=== PATIENT | male | born 1955 | race Caucasian/White ===

== ENCOUNTER 2024-08-06 22:09 | Observation (INO) ==
--- NOTE | 2024-08-06 22:25 | Emergency Department Note ---
Impression & Plan Head injury, Contusion of forehead, Cervical strain, acute, Abnormal CT of the head ED Provider Note NAME: ESPINOZA HARRIS III AGE: 68 SEX: M : 1955 ARRIVES VIA: Ambulance INFORMANT: Patient, EMS ED PROVIDER(S): Luis Gomez DO CHIEF COMPLAINT: Head injury HPI: The patient is a 68-year-old male who presented to the emergency department for an evaluation of head injury. 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 The patient was tackled accidentally when players came across the field of play. The patient fell to the ground. The patient had a loss of consciousness with that was witnessed. The patient has had a headache. He is had no vomiting. He denies any other injury. He complains of some neck stiffness but no overt pain. He also complains of stiffness in his right knee. The patient denies having any blood thinners. He was made a injury alert prior to arrival. ROS: See above HPI for pertinent positives & negatives. A total of 10 systems reviewed and were otherwise negative. PAST MEDICAL HISTORY: See Below PAST SURGICAL HISTORY: See Below FAMILY HISTORY: See Below SOCIAL HISTORY: See Below HOME MEDICATIONS: See Below ALLERGIES: See Below VITALS: See Below PHYSICAL EXAMINATION: Primary Survey Airway: Intact Breathing: Normal, breath sounds equal bilaterally Circulation: Skin warm, distal pulses 2+, capillary refill less than 2 seconds Disability Pupils: Equal and reactive to light, 4mm, brisk GCS: 15, Motor Function: Moves all extremities. Sensory: No deficits Secondary Survey GEN: Well developed and well-nourished HEAD: There is a hematoma on the right parietal scalp. No active bleeding was noted. EYES: Pupils round reactive to light, conjunctiva clear, extraocular movements intact, no raccoons eyes ENT: No fluid in external acoustic canals, no hemotympanum, no llanes's sign, nares patent, oropharynx clear NECK: Rigid cervical collar was placed prior to arrival. The patient does have normal range of motion with no tenderness. Cervical spine is clinically cleared on initial evaluation. HEART: Regular rate and rhythm LUNGS: Clear to auscultation bilaterally. CHEST: Chest wall non-tender, no bruising/deformity ABD: There is no tenderness guarding or rigidity noted. BACK: No step offs or deformities, T-L spine non tender EXT: There is no decreased range of motion noted in either upper extremity. There is no decreased range of motion or tenderness with range of motion testing of the hips bilaterally. There was tenderness to palpation over the right knee. No gross deformity was noted. NEURO: The patient is awake alert and oriented x 3. Strength was symmetric. MEDICAL DECISION MAKING: The patient is a 68-year-old male who presented to the emergency department for an evaluation of head injury. 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 The patient arrived via ambulance. The patient's cervical spine was clinically cleared in the emergency department. Cervical spine was also radiographically cleared. I discussed the patient's laboratory and radiographic studies with him. Given his findings on CAT scan of the brain I also discussed his condition with the neurosurgeon at [facility]. They do not feel the patient requires transfer at this time but would endorse a delayed CAT scan of the brain unless the patient's clinical condition worsens. For this reason I [facility] to evaluate the patient in the emergency department for further management and disposition. Triage Nursing notes reviewed. Prior medical records reviewed Vital Signs: reviewed and remarkable for elevated blood pressure. Differential diagnosis: Fracture, dislocation, contusion, intra-abdominal, pneumothorax, intrathoracic, intracranial, neurologic, compartment syndrome, rhabdomyolysis, as well as other pathologies. ER treatment provided: See below Diagnostics interpreted by me: ECG: EKG was obtained in the emergency department. My interpretation is sinus bradycardia 59 bpm. There is no ectopy. Right bundle branch block pattern was favored. LVH was suggested by voltage criteria. This was compared to a tracing from May 11, 2021. No changes were noted. Cardiac Monitoring: An order was placed for continuous cardiac monitoring. The monitor shows a rate of 64 bpm with sinus rhythm. Laboratory studies: As stated above and show below. Imaging studies: See below. Radiographic imaging was reviewed by myself Consultation(s): I discussed this case with Dr. Knapp who is on-call for neurosurgery at [facility]. He does not feel the patient requires transfer at this time and would agree with a delayed CAT scan to determine if this is worsening. I discussed this case with Dr. Krueger who is on-call for the [facility]. ED COURSE: Cervical spine was clinically cleared in the emergency department after radiographic clearance. Past Med/Surg History Problem List (Updated 08/07/24 @ 01:43 by Luis Gomez DO) Abnormal CT of the head (Acute) Cervical strain, acute (Acute) Contusion of forehead (Acute) Head injury (Acute) Hypertension Fracture of phalanx of finger of right hand Mixed conductive and sensorineural hearing loss of right ear with restricted hearing of left ear Erectile dysfunction Conductive hearing loss of right ear with restricted hearing of left ear Otalgia of both ears Intermittent Tinnitus, bilateral Gilbert's syndrome Arthritis of knee, left Sensorineural hearing loss (SNHL) of left ear with restricted hearing of right ear Seasonal allergies Medial meniscus tear Medical History Cataract rt Osteoarthritis Degenerative disc disease Chronic back pain Surgical History S/P cataract extraction R, 01/2022 Hx of surgical procedure vasectomy reversal History of umbilical hernia repair History of colonoscopy H/O hand surgery ORIF left index finger ( S/P vasectomy x2 S/P knee surgery right knee x2 right knee x1 Family History Father Colorectal cancer Other Allergies No family history of adverse response to anesthesia No family history of bleeding disorder Denies family history of Ovarian cancer Prostate cancer Myocardial infarction Breast cancer Social History Smoking Status: Never smoker Second Hand Exposure: No; Do You Dip or Chew Tobacco: No; Hx Alcohol Use: No Hx Substance Use: No Preferred Language: Khmer Communication Ability: Effective Visual Impairment: No Limitations Hearing Ability: Normal Cap Parts Cutter Required: No Beliefs That Will Affect Care: None marital status: Current Living Situation: Spouse current occupational status: employed and retired 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[employer] How many Children do You have: 6 Feels Safe at Home: Yes Childhood Exposure to Second-Hand Smoke: Yes Diet: regular caffeine: Yes Dental Care, Regularly: Yes Physical Activity Frequency: Does not Exercise Seatbelt Use: always Sunscreen Use: Yes Assistive Devices: Glasses Allergies Allergies Allergy/AdvReac Type Severity Reaction Status Date / Time No Known Drug Allergies Allergy Verified 04/22/24 17:07 Home Meds Home Medications Medication Instructions Recorded Confirmed fexofenadine 180 mg tablet 180 mg PO QAM PRN seasonal 05/14/21 04/22/24 (Izzy Allergy) allergies naproxen sodium 220 mg tablet 220 mg PO Q8H PRN Pain 01/30/22 04/22/24 (Aleve) multivitamin (Daily Multi-Vitamin 1 tab PO DAILY 12/26/23 04/22/24 tablet) Previous Rx's Medication Instructions Recorded sildenafil 100 mg tablet 100 mg PO DAILY PRN sexual 11/27/21 activity #20 tabs doxycycline hyclate 100 mg capsule 100 mg PO BID #14 caps 03/30/24 promethazine-DM 6.25 mg-15 mg/5 mL 5 ml PO Q6H PRN cough #118 mL 03/30/24 oral syrup Results & Data (ED) Vital Signs Vital Signs - 24 hr 08/06/24 22:02 08/06/24 22:02 08/06/24 22:02 Temperature 36.8 C Temperature Source Oral Pulse Rate Pulse Rate [Right Brachial] 65 65 Pulse Rhythm [Right Brachial] Regular Regular Pulse Strength [Carotid] Pulse Strength [Right Brachial] Normal Normal Respiratory Rate 19 19 Respiratory Effort / Characteristics Non-Labored Non-Labored Respiratory Depth Normal Normal Respiratory Pattern Regular Regular Blood Pressure Blood Pressure [Right Arm] 144/91 H 144/91 H Blood Pressure Mean Blood Pressure Mean [Right Arm] 108 108 Blood Pressure Position [Right Arm] Lying Lying Pulse Oximetry 96 97 97 Oxygen Delivery Method Room Air Room Air Room Air Oxygen Flow Rate Sepsis Recent Fever Within 48 Hours Sepsis New/Unexplained Change in Mental Status Sepsis Action Taken by Nursing 08/06/24 22:13 08/06/24 22:15 08/06/24 22:16 Temperature 36.8 C Temperature Source Oral Pulse Rate 68 68 Pulse Rate [Right Brachial] 64 Pulse Rhythm [Right Brachial] Regular Pulse Strength [Carotid] Pulse Strength [Right Brachial] Normal Respiratory Rate 18 19 Respiratory Effort / Characteristics Non-Labored Spontaneous Non-Labored Respiratory Depth Normal Normal Respiratory Pattern Regular Regular Blood Pressure 163/98 H Blood Pressure [Right Arm] 144/91 H Blood Pressure Mean 119 Blood Pressure Mean [Right Arm] 108 Blood Pressure Position [Right Arm] Lying Pulse Oximetry 96 96 Oxygen Delivery Method Room Air Room Air Oxygen Flow Rate Sepsis Recent Fever Within 48 Hours No Sepsis New/Unexplained Change in Mental Status N/A Sepsis Action Taken by Nursing No Action Required 08/06/24 23:15 08/07/24 00:00 08/07/24 00:46 Temperature 36.9 C Temperature Source Pulse Rate 61 Pulse Rate [Right Brachial] 62 62 Pulse Rhythm [Right Brachial] Regular Regular Pulse Strength [Carotid] Normal Pulse Strength [Right Brachial] Normal Normal Respiratory Rate 16 18 18 Respiratory Effort / Characteristics Non-Labored Non-Labored Spontaneous Respiratory Depth Normal Normal Respiratory Pattern Regular Regular Blood Pressure 168/90 H Blood Pressure [Right Arm] 165/90 H 175/88 H Blood Pressure Mean Blood Pressure Mean [Right Arm] 115 117 Blood Pressure Position [Right Arm] Lying Semi-fowlers Pulse Oximetry 96 97 99 Oxygen Delivery Method Room Air Room Air Room Air Oxygen Flow Rate 0 Sepsis Recent Fever Within 48 Hours Sepsis New/Unexplained Change in Mental Status Sepsis Action Taken by Nursing 08/07/24 00:46 08/07/24 01:00 Temperature Temperature Source Pulse Rate Pulse Rate [Right Brachial] 64 Pulse Rhythm [Right Brachial] Regular Pulse Strength [Carotid] Pulse Strength [Right Brachial] Normal Respiratory Rate 18 Respiratory Effort / Characteristics Non-Labored Spontaneous Respiratory Depth Normal Respiratory Pattern Regular Blood Pressure Blood Pressure [Right Arm] 159/92 H Blood Pressure Mean Blood Pressure Mean [Right Arm] 114 Blood Pressure Position [Right Arm] Semi-fowlers Pulse Oximetry 99 95 Oxygen Delivery Method Room Air Room Air Oxygen Flow Rate Sepsis Recent Fever Within 48 Hours Sepsis New/Unexplained Change in Mental Status Sepsis Action Taken by Alf Medications Current Medication List: was personally reviewed by me Laboratory Data Attestation: I reviewed the patient's lab results. 08/06/24 22:39 08/06/24 22:39 Lab Results 08/06/24 08/06/24 08/07/24 Range/Units 22:39 22:43 00:42 WBC 6.10 (4.8-10.8) K/ul RBC 4.76 (4.70-6.10) M/uL Hgb 14.7 (14.0-18.0) g/dl POC Hgb 13.6 L (14.0-18.0) g/dl Hct 40.2 L (42.0-52.0) % POC Hct 40 L (42-52) % MCV 84.5 (80.0-100.0) fL MCH 30.9 (25.0-34.0) pg MCHC 36.6 H (32.0-36.0) g/dL RDW Std Deviation 35.8 L (36.4-46.3) fL RDW Coeff of Skip 11.9 (11.5-14.5) % Plt Count 148 (130-400) K/uL MPV 11.0 (9.4-12.4) fL Immature Gran % (Auto) 0.7 % Neut % (Auto) 59.1 % Lymph % (Auto) 31.5 % [place] % (Auto) 8.0 % Eos % (Auto) 0.5 % Baso % (Auto) 0.2 % Neut # (Auto) 3.61 (1.40-6.50) K/uL Lymph # (Auto) 1.92 (1.20-3.40) K/uL [place] # (Auto) 0.49 (0.11-0.59) K/uL Eos # (Auto) 0.03 (0.00-0.50) K/uL Baso # (Auto) 0.01 (0.00-0.20) K/uL Immature Gran # (Auto) 0.04 (0.01-0.20) K/uL PT 10.9 (9.0-12.0) Seconds INR 1.0 (0.9-1.1) APTT 25 (21-31) Seconds PTT Ratio 0.9 POC Sodium 141 (135-144) mmol/L Sodium 138 (136-145) mmol/L POC Potassium 3.7 (3.3-5.0) mmol/L Potassium 3.7 (3.5-5.1) mmol/L POC Chloride 104 (101-112) mmol/L Chloride 104 (98-107) mmol/L Carbon Dioxide 25 (21-32) mmol/L POC Total CO2 22 L (24-31) mmol/L Anion Gap 9 (3-11) POC Anion Gap 19.0 (16-25) mmol/L POC BUN 29 H (7-18) mg/dl BUN 32 H (6-23) mg/dl Creatinine 1.02 (0.6-1.4) mg/dl POC Creatinine 1.1 (0.6-1.3) mg/dl Est Cr Clr Drug Dosing 89.9 ml/min eGFR 80.06 BUN/Creatinine Ratio 31.4 H (10-20) Glucose 98 (70-99(Fasting)) mg/dl POC Glucose (other) 93 (70-99) mg/dl Calcium 9.3 (8.6-10.3) mg/dl POC Ioniz Calcium Marilia 1.22 (1.12-1.32) mmol/l Total Bilirubin 1.5 H (0.2-1.0) mg/dl AST 26 (13-39) U/L ALT 24 (7-52) U/L Alkaline Phosphatase 69 (34-104) U/L Total Protein 6.6 (6.0-8.3) gm/dl Albumin 4.5 (3.4-5.0) gm/dl Globulin 2.1 L (2.5-4.0) gm/dl Albumin/Globulin Ratio 2.1 H (0.9-2) Lipase 44 (11-82) U/L Urine Color Yellow Urine Appearance Clear (Clear) Urine pH 5.0 (4.5-7.5) Ur Specific [place] 1.023 (1.000-1.030) Urine Protein Negative (Negative) Urine Glucose (UA) Negative (Negative) Urine Ketones 1+ H (Negative) Urine Blood Negative (Negative) Urine Nitrite Negative (Negative) Urine Bilirubin Negative (Negative) Urine Urobilinogen Negative (Negative) Ur Leukocyte Esterase Negative (Negative) Urine Comment Administered Medications Discontinued Medications Acetaminophen (Ofirmev) 1,000 mg in 100 mls @ 400 mls/hr IV NOW STA Stop: 08/06/24 22:34 Last Infusion: 08/06/24 23:12 Dose: Infused Documented By: Admin: 08/06/24 22:54 Dose: 400 mls/hr Documented By: EFREN Ondansetron HCl (Ondansetron Inj 2 Mg/Ml 2 Ml Vial) 4 mg IV NOW STA Stop: 08/06/24 22:21 Last Admin: 08/06/24 22:54 Dose: 4 mg Documented By: EFREN Imaging Data Attestation: I personally reviewed and interpreted this imaging study as follows: My Impression: X-ray of the right knee was obtained in the emergency department. My interpretation is degenerative changes noted but no definite fracture, final report pending. X-ray of the pelvis was obtained in the emergency department. My interpretation is no definite fracture, final report pending. 1 view chest x-ray was obtained in the emergency department. My interpretation is no free air or definite infiltrate, final report pending. Radiologist's Impression: Cervical Spine CT 08/06/24 22:20 Exam(s): CT C SPINE EXAM: CT Cervical Spine Without Intravenous Contrast CLINICAL HISTORY: Reason for exam: Trauma. TECHNIQUE: Axial computed tomography images of the cervical spine without intravenous contrast. CTDI is 35.79 mGy and DLP is 624.41 mGy-cm. Automated exposure control was utilized for the study. A dose lowering technique was utilized adhering to the principles of ALARA. COMPARISON: No relevant prior studies available. FINDINGS: Vertebrae: Unremarkable. No acute fracture or subluxation. Discs/spinal canal/neural foramina: Disc and uncovertebral joint degeneration at C5-C6 and C6-C7. Multilevel bilateral facet joint degeneration, right worse than left. Mild central canal narrowing at C5- C6. Foraminal narrowing on the right at C2-C3, on the right at C3-C4, on the right at C4-C5, bilaterally at C5-C6, and on the left at C6-C7. Soft tissues: Unremarkable. IMPRESSION: No acute findings in the cervical spine. Electronically signed by: Naina Guardado M.D. 08/07/24 00:27 AM Chest X-Ray 08/06/24 22:20 Exam(s): XR CXR 1 VIEW EXAM: XR Chest, 1 View CLINICAL HISTORY: Reason for exam: Trauma. TECHNIQUE: Frontal view of the chest. COMPARISON: 08/04/2012 FINDINGS: Lungs: No consolidation. Pleural space: No significant pleural effusion. No pneumothorax. Heart: No cardiomegaly or pulmonary vascular congestion. Bones/joints: No acute fracture. No dislocation. IMPRESSION: No evidence of acute cardiopulmonary disease. Electronically signed by: Naina Guardado M.D. 08/07/24 00:[address] 08/06/24 22:20 CR Exam(s): CT HEAD Without Contrast EXAM: CT Head Without Intravenous Contrast CLINICAL HISTORY: Reason for exam: Trauma. TECHNIQUE: Axial computed tomography images of the head/brain without intravenous contrast. CTDI is 26.24 mGy and DLP is 528.47 mGy-cm. Automated exposure control was utilized for the study. A dose lowering technique was utilized adhering to the principles of ALARA. COMPARISON: No relevant prior studies available. FINDINGS: Brain: Trace hyperdensity along the interhemispheric fissure (series 2, image 18). Cortical cerebral volume loss. Guerrero-white matter differentiation maintained. No mass effect or midline shift. No parenchymal edema. Ventricles: No hydrocephalus. Bones/joints: No acute fracture. Soft tissues: Mild right frontal scalp swelling. Sinuses: Unremarkable as visualized. Mastoid air cells: No significant mastoid effusion. IMPRESSION: 1. Trace hyperdensity along the interhemispheric fissure (series 2, image 18). Mineralization and trace subarachnoid hemorrhage are differential considerations. 2. Mild right frontal scalp swelling. Communications: Call Doctor Intracranial Hemorrhage Electronically signed by: Naina Guardado M.D. 08/07/24 00:26 AM Knee X-Ray 08/06/24 22:20 Exam(s): XR RIGHT KNEE, 1-2 views EXAM: XR Right Knee, 1 or 2 Views CLINICAL HISTORY: Reason for exam: trauma. TECHNIQUE: Frontal and/or lateral views of the right knee. COMPARISON: No relevant prior studies available. FINDINGS: Bones/joints: Mild tricompartment osteoarthritis. No joint effusion. No acute fracture or dislocation. Soft tissues: Unremarkable. IMPRESSION: No acute findings in the right knee. Electronically signed by: Naina Guardado M.D. 08/07/24 00:33 AM Pelvis X-Ray 08/06/24 22:20 Exam(s): XR PELVIS, 1-2 views EXAM: XR Pelvis, 1 or 2 Views CLINICAL HISTORY: Reason for exam: Trauma. TECHNIQUE: Frontal view of the pelvis. COMPARISON: No relevant prior studies available. FINDINGS: Bones/joints: No acute fracture. No dislocation. Soft tissues: Unremarkable. IMPRESSION: No acute osseous findings. Electronically signed by: Naina Guardado M.D. 08/07/24 01:23 AM Discharge Plan Visit Data Chief Complaint: Trauma Stated Complaint: Knocked Out ED Provider: Luis Gomez Discharge Problem: Head injury, Contusion of forehead, Cervical strain, acute, Abnormal CT of the head Patient Disposition: Being Evaluated by Hospitalist Condition: Fair Forms Stand Alone Forms: [facility] [employer] Prescriptions Prescriptions: No Action sildenafil 100 mg tablet 100 mg PO DAILY PRN (Reason: sexual activity) Qty: 20 5RF Rx Instructions: administer 30 minutes to 4 hours before activity promethazine-DM 6.25-15 mg/5 mL syrup 5 ml PO Q6H PRN (Reason: cough) Qty: 118 0RF multivitamin [Daily Multi-Vitamin] Tablet 1 tab PO DAILY doxycycline hyclate 100 mg capsule 100 mg PO BID Qty: 14 0RF fexofenadine [Izzy Allergy] 180 mg Tablet 180 mg PO QAM PRN (Reason: seasonal allergies) naproxen sodium [Aleve] 220 mg Tablet 220 mg PO Q8H PRN (Reason: Pain) Patient Comments: takes twice daily Referrals Referrals: Erick Ayala DO [Primary Care Provider] -
[2024-08-06] MEDS: ACETAMINOPHEN 1,000 MG/100 ML VIAL IV STA (22:54)
[2024-08-06] MEDS: ONDANSETRON INJ 2 MG/ML 2 ML VIAL IV STA (22:54)
[2024-08-06 23:00] LABS: iSTAT Creatinine 1.1 mg/dl (0.6-1.3); iSTAT Hemoglobin 13.6 g/dl (14.0-18.0); iSTAT Ionized Calcium 1.22 mmol/l (1.12-1.32); iSTAT Potassium 3.7 mmol/L (3.3-5.0)
[2024-08-06 23:00] LABS: Basophils # (auto) 0.01 K/uL (0.00-0.20); Basophils % (auto) 0.2 %; Eosinophils # (auto) 0.03 K/uL (0.00-0.50); Eosinophils % (auto) 0.5 %; Hematocrit (blood only) 40.2 % (42.0-52.0); Hemoglobin 14.7 g/dl (14.0-18.0); Immature Granulocytes # (auto) 0.04 K/uL (0.01-0.20); Immature Granulocytes % (auto) 0.7 %; Lymphocytes # (auto) 1.92 K/uL (1.20-3.40); Lymphocytes % (auto) 31.5 %; Mean Corpuscular Hemoglobin 30.9 pg (25.0-34.0); Mean Corpuscular Hgb Conc 36.6 g/dL (32.0-36.0); Mean Corpuscular Volume 84.5 fL (80.0-100.0); Monocytes # (auto) 0.49 K/uL (0.11-0.59); Neutrophils # (auto) 3.61 K/uL (1.40-6.50); Neutrophils % (auto) 59.1 %; Platelet Count 148 K/uL (130-400); RDW Coefficient of Variation 11.9 % (11.5-14.5); RDW Standard Deviation 35.8 fL (36.4-46.3); Red Blood Count 4.76 M/uL (4.70-6.10)
[2024-08-06 23:14] LABS: Albumin Level 4.5 gm/dl (3.4-5.0); Bilirubin,Total 1.5 mg/dl (0.2-1.0); Calcium 9.3 mg/dl (8.6-10.3); Potassium 3.7 mmol/L (3.5-5.1)
[2024-08-06 23:20] LABS: Albumin Globulin Ratio 2.1 (0.9-2); BUN Creatinine Ratio 31.4 (10-20); Creatinine Clr Calc Pharmacy 89.9 ml/min; Globulin 2.1 gm/dl (2.5-4.0); Total Protein 6.6 gm/dl (6.0-8.3)
[2024-08-06 23:38] LABS: Partial Thromboplastin Ratio 0.9; Partial Thromboplastin Time 25 Seconds (21-31); Prothrombin Time 10.9 Seconds (9.0-12.0)
--- NOTE | 2024-08-07 00:27 | CT Scan Report ---
Exam(s): CT HEAD Without Contrast EXAM: CT Head Without Intravenous Contrast CLINICAL HISTORY: Reason for exam: Trauma. TECHNIQUE: Axial computed tomography images of the head/brain without intravenous contrast. CTDI is 26.24 mGy and DLP is 528.47 mGy-cm. Automated exposure control was utilized for the study. A dose lowering technique was utilized adhering to the principles of ALARA. COMPARISON: No relevant prior studies available. FINDINGS: Brain: Trace hyperdensity along the interhemispheric fissure (series 2, image 18). Cortical cerebral volume loss. Guerrero-white matter differentiation maintained. No mass effect or midline shift. No parenchymal edema. Ventricles: No hydrocephalus. Bones/joints: No acute fracture. Soft tissues: Mild right frontal scalp swelling. Sinuses: Unremarkable as visualized. Mastoid air cells: No significant mastoid effusion. IMPRESSION: 1. Trace hyperdensity along the interhemispheric fissure (series 2, image 18). Mineralization and trace subarachnoid hemorrhage are differential considerations. 2. Mild right frontal scalp swelling. Communications: Call Doctor Intracranial Hemorrhage Electronically signed by: Naina Guardado M.D. 08/07/24 00:26 AM
--- NOTE | 2024-08-07 00:28 | CT Scan Report ---
Exam(s): CT C SPINE EXAM: CT Cervical Spine Without Intravenous Contrast CLINICAL HISTORY: Reason for exam: Trauma. TECHNIQUE: Axial computed tomography images of the cervical spine without intravenous contrast. CTDI is 35.79 mGy and DLP is 624.41 mGy-cm. Automated exposure control was utilized for the study. A dose lowering technique was utilized adhering to the principles of ALARA. COMPARISON: No relevant prior studies available. FINDINGS: Vertebrae: Unremarkable. No acute fracture or subluxation. Discs/spinal canal/neural foramina: Disc and uncovertebral joint degeneration at C5-C6 and C6-C7. Multilevel bilateral facet joint degeneration, right worse than left. Mild central canal narrowing at C5- C6. Foraminal narrowing on the right at C2-C3, on the right at C3-C4, on the right at C4-C5, bilaterally at C5-C6, and on the left at C6-C7. Soft tissues: Unremarkable. IMPRESSION: No acute findings in the cervical spine. Electronically signed by: Naina Guardado M.D. 08/07/24 00:27 AM
--- NOTE | 2024-08-07 00:34 | XRay Report ---
Exam(s): XR RIGHT KNEE, 1-2 views EXAM: XR Right Knee, 1 or 2 Views CLINICAL HISTORY: Reason for exam: trauma. TECHNIQUE: Frontal and/or lateral views of the right knee. COMPARISON: No relevant prior studies available. FINDINGS: Bones/joints: Mild tricompartment osteoarthritis. No joint effusion. No acute fracture or dislocation. Soft tissues: Unremarkable. IMPRESSION: No acute findings in the right knee. Electronically signed by: Naina Guardado M.D. 08/07/24 00:33 AM
[2024-08-07 00:51] LABS: Appearance Urine Clear (Clear); Bilirubin Urine Negative (Negative); Blood Urine Negative (Negative); Color Urine Yellow; Glucose Urine UA Negative (Negative); Ketones Urine 1+ (Negative); Leukocyte Esterase Urine Negative (Negative); Nitrite Urine Negative (Negative); Protein Urine Negative (Negative); Specific Gravity Urine 1.023 (1.000-1.030); Urobilinogen Urine Negative (Negative)
--- NOTE | 2024-08-07 00:52 | XRay Report ---
Exam(s): XR CXR 1 VIEW EXAM: XR Chest, 1 View CLINICAL HISTORY: Reason for exam: Trauma. TECHNIQUE: Frontal view of the chest. COMPARISON: 08/04/2012 FINDINGS: Lungs: No consolidation. Pleural space: No significant pleural effusion. No pneumothorax. Heart: No cardiomegaly or pulmonary vascular congestion. Bones/joints: No acute fracture. No dislocation. IMPRESSION: No evidence of acute cardiopulmonary disease. Electronically signed by: Naina Guardado M.D. 08/07/24 00:51 AM
--- NOTE | 2024-08-07 01:24 | XRay Report ---
Exam(s): XR PELVIS, 1-2 views EXAM: XR Pelvis, 1 or 2 Views CLINICAL HISTORY: Reason for exam: Trauma. TECHNIQUE: Frontal view of the pelvis. COMPARISON: No relevant prior studies available. FINDINGS: Bones/joints: No acute fracture. No dislocation. Soft tissues: Unremarkable. IMPRESSION: No acute osseous findings. Electronically signed by: Naina Guardado M.D. 08/07/24 01:23 AM
--- NOTE | 2024-08-07 02:10 | History & Physical Report ---
Date of Service August 07, 2024 Assessment & Plan (1) Subarachnoid hemorrhage: (2) Head injury: (3) Contusion of forehead: (4) Concussion: (5) Cervical strain, acute: (6) Gilbert's syndrome: Plan Very pleasant 68yo male with no significant or pertinent past medical history presented to [facility] after suffering a head injury at a local football all-star game in [place]. 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 Apparently 2 or more players tackled each other near the sideline, went out of bounds, and collided with Mr Jean Baptiste. He does not recall where he initially got hit but he was thrown to the ground. He lost consciousness for at least 1 minute per bystanders, and upon awakening he was confused until he got in the ambulance to come to [facility]. Initial CT head at [facility] appears to show a very tiny subarachnoid hemorrhage. #small arachnoid hemorrhage - -2nd to head injury as above -neuro exam is wnl -will perform neuro checks/GCS checks q4h -repeat CT head noncontrast at 0800 today -would plan to reach back out to neurosurgery at [facility] after the repeat head CT has resulted -if stable -- then another head CT in 2 weeks as outpatient? #head injury with concussion - -brain rest/avoid strenuous physical & mental activities -IV fluids -allow diet as tolerated -briefly discussed concussion with patient & his /daughter -see above re: SAH #contusion of forehead - -ice prn -tylenol prn -avoid NSAIDs for now due to SAH #elevated total bilirubin - -chronic -likely 2nd to h/o Gilbert's syndrome -no Rx #cervical strain - -c-spine CT negative for fracture -tylenol prn -ice prn then heat ultimately in a couple of days place on observation status /daughter updated at bedside History of Present Illness Chief Complaint: head injury Primary Care Provider: Erick Ayala, Very pleasant 68yo male with no significant or pertinent past medical history presented to [facility] after suffering a head injury at a local football all-star game in [place]. 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 Apparently 2 or more players tackled each other near the sideline, went out of bounds, and collided with Mr Jean Baptiste. He does not recall where he initially got hit but he was thrown to the ground. He lost consciousness for at least 1 minute per bystanders, and upon awakening he was confused until he got in the ambulance to come to [facility]. His first recollection of the event was being in the ambulance. During my assessment he c/o mild headache, soreness in his neck, and being sore in other locations. However, he denies pain in his arms, legs, pelvis, and low back. He was able to accurately tell me what he had eaten earlier in the day, and was oriented to person/place/time/month/year. CT head done in the ER appears to show a tiny SAH inter-hemispheric. Dr Gomez, ER physician, contacted Dr. Knapp who was on-call for neurosurgery at [facility]. Dr Knapp felt that Mr Jean Baptiste could be safely admitted to [facility] with plans for repeat head CT later this morning to ensure stability. Allergies Allergy/AdvReac Type Severity Reaction Status Date / Time No Known Drug Allergies Allergy Verified 04/22/24 17:07 Home Medications Medication Instructions Recorded Confirmed Type fexofenadine 180 mg tablet 180 mg PO QAM PRN seasonal 05/14/21 04/22/24 History (Izzy Allergy) allergies sildenafil 100 mg tablet 100 mg PO DAILY PRN sexual 11/27/21 04/22/24 Rx activity #20 tabs naproxen sodium 220 mg tablet 220 mg PO Q8H PRN Pain 01/30/22 04/22/24 History (Aleve) multivitamin (Daily Multi-Vitamin 1 tab PO DAILY 12/26/23 04/22/24 History tablet) doxycycline hyclate 100 mg capsule 100 mg PO BID #14 caps 03/30/24 04/22/24 Rx promethazine-DM 6.25 mg-15 mg/5 mL 5 ml PO Q6H PRN cough #118 mL 03/30/24 04/22/24 Rx oral syrup Past Med/Surg History Problem List (Updated 08/07/24 @ 05:27 by Derrick Krueger MD) Concussion Subarachnoid hemorrhage Abnormal CT of the head (Acute) Cervical strain, acute (Acute) Contusion of forehead (Acute) Head injury (Acute) Hypertension Fracture of phalanx of finger of right hand Mixed conductive and sensorineural hearing loss of right ear with restricted hearing of left ear Erectile dysfunction Conductive hearing loss of right ear with restricted hearing of left ear Otalgia of both ears Intermittent Tinnitus, bilateral Gilbert's syndrome Arthritis of knee, left Sensorineural hearing loss (SNHL) of left ear with restricted hearing of right ear Seasonal allergies Medial meniscus tear Medical History Cataract rt Osteoarthritis Degenerative disc disease Chronic back pain Surgical History S/P cataract extraction R, 01/2022 Hx of surgical procedure vasectomy reversal History of umbilical hernia repair History of colonoscopy H/O hand surgery ORIF left index finger ( S/P vasectomy x2 S/P knee surgery right knee x2 right knee x1 Family History (Updated 08/07/24 @ 05:20 by Derrick Krueger MD) Father , age 72 Colorectal cancer Other Allergies No family history of adverse response to anesthesia No family history of bleeding disorder Denies family history of Ovarian cancer Prostate cancer Myocardial infarction Breast cancer Social History (Updated 08/07/24 @ 05:21 by Derrick Krueger MD) Smoking Status: Never smoker Second Hand Exposure: No; Do You Dip or Chew Tobacco: No; Tobacco Cessation Education Requested by Patient: No Hx Alcohol Use: No Hx Substance Use: No Preferred Language: Romanian Communication Ability: Effective Visual Impairment: No Limitations Hearing Ability: Normal Bull Riveter Required: No Beliefs That Will Affect Care: None marital status: Current Living Situation: Spouse current occupational status: employed 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[employer] How many Children do You have: 6 Other Information That Helps Us Care for You: No Feels Safe at Home: Yes Safety Concerns: Feels Safe At This Time Childhood Exposure to Second-Hand Smoke: Yes Diet: regular caffeine: Yes Dental Care, Regularly: Yes Physical Activity Frequency: Does not Exercise Seatbelt Use: always Sunscreen Use: Yes Assistive Devices: Glasses Review of Systems Review of Systems: gen - no recent fevers; good appetite eyes - no blurry vision or visual loss following his head injury HENT - no ear pain, sore throat, mouth pain neck - soreness present since the injury; he also has chronic neck pain at baseline CV - no chest pain pulm - no dyspnea, no cough GI - no abd pain or N/V since the accident - no dysuria musculo - soreness in various locations but not painful neuro - no numbness/tingling of arms/legs; mild headache; was able to walk to bathroom in the ER without difficulty; no ataxia or dizziness skin - abrasion/mild hematoma right forehead endo - no diabetes Physical Exam Physical Exam: gen - lying comfortably in bed, NAD, awake/alert eyes - PERRL, EOMI, mild horizontal nystagmus with lateral gaze face - mild abrasion/hematoma/swelling right forehead, no other signs of trauma HENT - no nasal fracture, no lip or oral cavity trauma; MMM; no lesions; teeth wnl neck - supple, no JVD heart - RRR, s1 s2, no murmur lungs - CTA b/l abd - soft NT ND BS+; no signs of trauma/bruising/etc.; no HSM; no flank tender ness b/l ext - scant swelling right knee, but not tender to palpation; pulses b/l feet 2+ musculo - full passive ROM of both arms, hips, knees, ankles - no pain with such; left 2nd finger with chronic deformity neuro - CN 3-12 intact; DTRs 2+ b/l upper & lower exts; strength 5/5 x 4 exts; finger/nose/finger maneuver wnl b/l hands psych - a/o x 3 Results & Data Results & Data Vital Signs (Past 12 Hours) Vital Signs Temp Pulse Pulse Resp BP BP Pulse Ox 08/07/24 01:00 64 18 159/92 H 95 08/07/24 00:46 99 08/07/24 00:46 36.9 C 61 18 168/90 H 99 08/07/24 00:00 62 18 175/88 H 97 08/06/24 23:15 62 16 165/90 H 96 08/06/24 22:16 68 08/06/24 22:15 64 19 144/91 H 96 08/06/24 22:13 36.8 C 68 18 163/98 H 96 08/06/24 22:02 97 08/06/24 22:02 36.8 C 65 19 144/91 H 97 08/06/24 22:02 65 19 144/91 H 96 O2 Del Method O2 Flow Rate 08/07/24 01:00 Room Air 08/07/24 00:46 Room Air 08/07/24 00:46 Room Air 0 08/07/24 00:00 Room Air 08/06/24 23:15 Room Air 08/06/24 22:16 08/06/24 22:15 Room Air 08/06/24 22:13 Room Air 08/06/24 22:02 Room Air 08/06/24 22:02 Room Air 08/06/24 22:02 Room Air Laboratory Results Laboratory Results - last 24 hr 08/06/24 08/06/24 08/07/24 22:39 22:43 00:42 WBC 6.10 RBC 4.76 Hgb 14.7 POC Hgb 13.6 L Hct 40.2 L POC Hct 40 L MCV 84.5 MCH 30.9 MCHC 36.6 H RDW Std Deviation 35.8 L RDW Coeff of Skip 11.9 Plt Count 148 MPV 11.0 Immature Gran % (Auto) 0.7 Neut % (Auto) 59.1 Lymph % (Auto) 31.5 [place] % (Auto) 8.0 Eos % (Auto) 0.5 Baso % (Auto) 0.2 Neut # (Auto) 3.61 Lymph # (Auto) 1.92 [place] # (Auto) 0.49 Eos # (Auto) 0.03 Baso # (Auto) 0.01 Immature Gran # (Auto) 0.04 PT 10.9 INR 1.0 APTT 25 PTT Ratio 0.9 POC Sodium 141 Sodium 138 POC Potassium 3.7 Potassium 3.7 POC Chloride 104 Chloride 104 Carbon Dioxide 25 POC Total CO2 22 L Anion Gap 9 POC Anion Gap 19.0 POC BUN 29 H BUN 32 H Creatinine 1.02 POC Creatinine 1.1 Est Cr Clr Drug Dosing 89.9 eGFR 80.06 BUN/Creatinine Ratio 31.4 H Glucose 98 POC Glucose (other) 93 Calcium 9.3 POC Ioniz Calcium Mar[place] 1.22 Magnesium 1.9 Total Bilirubin 1.5 H AST 26 ALT 24 Alkaline Phosphatase 69 Total Protein 6.6 Albumin 4.5 Globulin 2.1 L Albumin/Globulin Ratio 2.1 H Lipase 44 Urine Color Yellow Urine Appearance Clear Urine pH 5.0 Ur Specific [place] 1.023 Urine Protein Negative Urine Glucose (UA) Negative Urine Ketones 1+ H Urine Blood Negative Urine Nitrite Negative Urine Bilirubin Negative Urine Urobilinogen Negative Ur Leukocyte Esterase Negative Urine Comment Diagnostic Findings Cervical Spine CT 08/06/24 22:20 Exam(s): CT C SPINE EXAM: CT Cervical Spine Without Intravenous Contrast CLINICAL HISTORY: Reason for exam: Trauma. TECHNIQUE: Axial computed tomography images of the cervical spine without intravenous contrast. CTDI is 35.79 mGy and DLP is 624.41 mGy-cm. Automated exposure control was utilized for the study. A dose lowering technique was utilized adhering to the principles of ALARA. COMPARISON: No relevant prior studies available. FINDINGS: Vertebrae: Unremarkable. No acute fracture or subluxation. Discs/spinal canal/neural foramina: Disc and uncovertebral joint degeneration at C5-C6 and C6-C7. Multilevel bilateral facet joint degeneration, right worse than left. Mild central canal narrowing at C5- C6. Foraminal narrowing on the right at C2-C3, on the right at C3-C4, on the right at C4-C5, bilaterally at C5-C6, and on the left at C6-C7. Soft tissues: Unremarkable. IMPRESSION: No acute findings in the cervical spine. Electronically signed by: Naina Guardado M.D. 08/07/24 00:27 AM Chest X-Ray 08/06/24 22:20 Exam(s): XR CXR 1 VIEW EXAM: XR Chest, 1 View CLINICAL HISTORY: Reason for exam: Trauma. TECHNIQUE: Frontal view of the chest. COMPARISON: 08/04/2012 FINDINGS: Lungs: No consolidation. Pleural space: No significant pleural effusion. No pneumothorax. Heart: No cardiomegaly or pulmonary vascular congestion. Bones/joints: No acute fracture. No dislocation. IMPRESSION: No evidence of acute cardiopulmonary disease. Electronically signed by: Naina Guardado M.D. 08/07/24 00:[address] 08/06/24 22:20 CR Exam(s): CT HEAD Without Contrast EXAM: CT Head Without Intravenous Contrast CLINICAL HISTORY: Reason for exam: Trauma. TECHNIQUE: Axial computed tomography images of the head/brain without intravenous contrast. CTDI is 26.24 mGy and DLP is 528.47 mGy-cm. Automated exposure control was utilized for the study. A dose lowering technique was utilized adhering to the principles of ALARA. COMPARISON: No relevant prior studies available. FINDINGS: Brain: Trace hyperdensity along the interhemispheric fissure (series 2, image 18). Cortical cerebral volume loss. Guerrero-white matter differentiation maintained. No mass effect or midline shift. No parenchymal edema. Ventricles: No hydrocephalus. Bones/joints: No acute fracture. Soft tissues: Mild right frontal scalp swelling. Sinuses: Unremarkable as visualized. Mastoid air cells: No significant mastoid effusion. IMPRESSION: 1. Trace hyperdensity along the interhemispheric fissure (series 2, image 18). Mineralization and trace subarachnoid hemorrhage are differential considerations. 2. Mild right frontal scalp swelling. Communications: Call Doctor Intracranial Hemorrhage Electronically signed by: Naina Guardado M.D. 08/07/24 00:26 AM Knee X-Ray 08/06/24 22:20 Exam(s): XR RIGHT KNEE, 1-2 views EXAM: XR Right Knee, 1 or 2 Views CLINICAL HISTORY: Reason for exam: trauma. TECHNIQUE: Frontal and/or lateral views of the right knee. COMPARISON: No relevant prior studies available. FINDINGS: Bones/joints: Mild tricompartment osteoarthritis. No joint effusion. No acute fracture or dislocation. Soft tissues: Unremarkable. IMPRESSION: No acute findings in the right knee. Electronically signed by: Naina Guardado M.D. 08/07/24 00:33 AM Pelvis X-Ray 08/06/24 22:20 Exam(s): XR PELVIS, 1-2 views EXAM: XR Pelvis, 1 or 2 Views CLINICAL HISTORY: Reason for exam: Trauma. TECHNIQUE: Frontal view of the pelvis. COMPARISON: No relevant prior studies available. FINDINGS: Bones/joints: No acute fracture. No dislocation. Soft tissues: Unremarkable. IMPRESSION: No acute osseous findings. Electronically signed by: Naina Guardado M.D. 08/07/24 01:23 AM PG Care Time/CCT Total # of Minutes Spent Total Time Spent with Patient: Total time spent is greater than 50% in coordination of care (as documented) at patient's floor/unit and/or counseling patient: Coding Level of Care Code 51354 INT INP/OBS CARE 2/55MIN Diagnoses Subarachnoid hemorrhage I60.9 Head injury S09.90XA Contusion of forehead S00.83XA Concussion S06.0XAA Cervical strain, acute S16.1XXA Gilbert's syndrome E80.4
[2024-08-07] MEDS ORDERED: HYDROCODONE/ACETAMOPHEN 5/325MG TAB PO PRN (03:13)
[2024-08-07] MEDS ORDERED: ONDANSETRON INJ 2 MG/ML 2 ML VIAL IV PRN (03:13)
[2024-08-07 03:17] LABS: Magnesium 1.9 mg/dl (1.7-2.4)
[2024-08-07] MEDS: ACETAMINOPHEN 500 MG TAB PO PRN (05:40)
[2024-08-07] MEDS: SODIUM CHLORIDE 0.9% 500 ML IV SCH (05:43)
[2024-08-07] MEDS: MULTIVITAMIN TAB PO SCH (07:52)
--- NOTE | 2024-08-07 09:03 | CT Scan Report ---
CT head/brain wo con CLINICAL HISTORY: small SAH, interval change. TECHNIQUE: Multiple axial CT images of the head were obtained without contrast. A dose lowering tech nique was utilized adhering to the principles of ALARA. CT DOSE: 625.8 mGy.cm COMPARISON: 08/06/2024 FINDINGS: There is a stable tiny focus of increased density just to the left of the anterior falx ser ies 4 image 79, calcification versus trace hemorrhage. No other intracranial hemorrhage seen. No mass effect, midline shift, or hydrocephalus. No skull fracture seen. Visualized paranasal sinuses and ma stoid air cells are clear. IMPRESSION: Stable exam. No adverse change seen. ACT 112: Negative or not required by law. The above report was generated using voice recognition software. It may contain grammatical, syntax o r spelling errors. Electronically signed by: Matthieu Vazquez M.D. 08/07/2024 9:01 AM
[2024-08-07 12:13] VITALS: BP 138/71; PULSE 59; RESP 17; TEMP 98.4; O2SAT 94
--- NOTE | 2024-08-07 19:09 | Discharge Summary ---
Date of Service August 07, 2024 Admission HPI Per Admitting Provider Very pleasant 68yo male with no significant or pertinent past medical history presented to [facility] after suffering a head injury at a local football all-star game in [place]. 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 Apparently 2 or more players tackled each other near the sideline, went out of bounds, and collided with Mr Jean Baptiste. He does not recall where he initially got hit but he was thrown to the ground. He lost consciousness for at least 1 minute per bystanders, and upon awakening he was confused until he got in the ambulance to come to [facility]. His first recollection of the event was being in the ambulance. During my assessment he c/o mild headache, soreness in his neck, and being sore in other locations. However, he denies pain in his arms, legs, pelvis, and low back. He was able to accurately tell me what he had eaten earlier in the day, and was oriented to person/place/time/month/year. CT head done in the ER appears to show a tiny SAH inter-hemispheric. Dr Gomez, ER physician, contacted Dr. Knapp who was on-call for neurosurgery at [facility]. Dr Knapp felt that Mr Jean Baptiste could be safely admitted to [facility] with plans for repeat head CT later this morning to ensure stability. Repeat CT of 8 AM shows stable Admission Exam (Per Admitting) Constitutional HEENT atraumatic normocephalic pupil equal round reactive to light mucous members are moist neck is supple chest is clear to auscultation cardiovascular exam S1-S2 regular rate and rhythm abdomen is soft patient has no bruises range of motion in all joints is good motor and sensory function is intact cranial nerves are intact , patient is not reporting any sensory deficit Discharge Data Consultations 08/07/24 01:26 ED Decision to Admit Stat Hospital Course (1) Subarachnoid hemorrhage: (2) Head injury: (3) Contusion of forehead: (4) Concussion: (5) Cervical strain, acute: (6) Gilbert's syndrome: Plan Very pleasant 68yo male with no significant or pertinent past medical history presented to [facility] after suffering a head injury at a local football all-star game in [place]. 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 Apparently 2 or more players tackled each other near the sideline, went out of bounds, and collided with Mr Jean Baptiste. He does not recall where he initially got hit but he was thrown to the ground. He lost consciousness for at least 1 minute per bystanders, and upon awakening he was confused until he got in the ambulance to come to [facility]. Initial CT head at [facility] appears to show a very tiny subarachnoid hemorrhage. #small arachnoid hemorrhage - -2nd to head injury as above -neuro exam is wnl -will perform neuro checks/GCS checks q4h -repeat CT head noncontrast at 0800 today - CT scan has been stable no active bleed even the first CT scan was somewhat suspicious of a bleed versus calcification - Clinically patient is doing much better - Discussed with patient to follow-up with his primary care physician patient had abnormal EKG with right bundle branch block and bradycardia this needs to be investigated #head injury with concussion - -brain rest/avoid strenuous physical & mental activities -IV fluids -allow diet as tolerated -Discussed with patient about findings of the imaging studies as well as his clinical picture which is patient is doing well #contusion of forehead - -ice prn -tylenol prn -avoid NSAIDs for now due to SAH #elevated total bilirubin - -chronic -likely 2nd to h/o Gilbert's syndrome -no Rx #cervical strain - -c-spine CT negative for fracture -tylenol prn -ice prn then heat ultimately in a couple of days Discharge Instructions Patient has been advised to watch carefully avoid falls and head trauma follow- up with primary care physician follow-up on the EKG findings and clinically if patient has any headaches or any other motor or sensory deficit then he should get imaging however at this time it looks like patient has significantly improved and has no clinical deficit Coding Level of Care Code 83711 INP/OBS DISCH >30 MIN Diagnoses Subarachnoid hemorrhage I60.9 Head injury S09.90XA Contusion of forehead S00.83XA Concussion S06.0XAA Cervical strain, acute S16.1XXA Gilbert's syndrome E80.4 Time Spent (min) 55
--- NOTE | 2024-08-09 15:58 | Electrocardiogram Report ---
Test Reason : Blood Pressure : */* mmHG Vent. Rate : 59 BPM Atrial Rate : 59 BPM P-R Int : 186 ms QRS Dur : 142 ms QT Int : 408 ms P-R-T Axes : 75 -65 85 degrees QTcB Int : 403 ms Sinus bradycardia Right bundle branch block Left anterior fascicular block Bifascicular block Septal infarct , age undetermined Lateral infarct , age undetermined Abnormal ECG When compared with ECG of 11-May-2021 15:34, (RBBB and left anterior fascicular block) has replaced Non-specific intra-ventricular conduction bloc k Septal infarct is now Present Confirmed by Dimitrios Hannon ([id number]) on 08/09/2024 3:58:25 PM Referred By: REFERRED SELF Confirmed By: Dimitrios Hannon
== END 2024-08-07 17:01 | disposition home or self-care (01) ==
LOC: 2S 22:09 → ED 22:09 → SUATTDRO 08-07 02:15 → 2S 08-07 02:52